=== PATIENT | male | born 1960 | race Caucasian/White ===

== ENCOUNTER 2022-04-27 08:03 | Day surgery (SDC) | payer OTHER ==
[~2022-04-27] VITALS: Ht 177.8 cm; Wt 102.1 kg
[2022-04-27] MEDS ORDERED: fentaNYL citrate 0.05 MG/ML VIAL ONE (10:24)
[2022-04-27] MEDS ORDERED: LIDOCAINE 2% 100 MG/5 ML UJET TP ONE (10:24)
[2022-04-27] MEDS ORDERED: fentaNYL citrate 0.05 MG/ML VIAL IVP ONE (11:25)
== END 2022-04-27 11:57 | disposition home or self-care (01) ==
LOC: MOR 08:03 → MMU 08:04 → MOR 11:57
PROVIDERS: ATTEND Internal Medicine Gastroenterology
DX: Z12.11 Encounter for screening for malignant neoplasm of colon (principal); K63.5 Polyp of colon; J45.909 Unspecified asthma, uncomplicated; Z87.891 Personal history of nicotine dependence; Z20.822 Contact with and (suspected) exposure to COVID-19; Z90.89 Acquired absence of other organs; Z79.899 Other long term (current) drug therapy
CPT/HCPCS: 45385; 87426; J3010